=== PATIENT | female | born 1980 ===

== ENCOUNTER 2021-05-29 14:58 | Emergency (ER) | payer OTHER ==
[2021-05-29] MEDS ORDERED: ACETAMINOPHEN 325 MG TAB PO ONE (17:45)
[2021-05-29 17:46] VITALS: BP 124/81
--- NOTE | 2021-05-29 18:03 | Emergency Department Report ---
- General Chief Complaint: Upper Respiratory Infection Stated Complaint: COVID SYMPTOMS Time Seen by Provider: 05/29/21 17:38 Source: patient Mode of arrival: Ambulatory Limitations: No Limitations - History of Present Illness Initial Comments: Patient is a 41-year-old female presents emergency room stating that her chief complaint is "Covid 19 symptoms" that began 3 days ago. She has associated dry cough, fatigue, fever, chills, generalized body aches, diarrhea, headache, chest congestion. She states that she also feels shortness of breath and chest discomfort after frequent coughing. She denies any vomiting, urinary symptoms, abdominal pain, leg swelling. She has not been vaccinated for COVID-19. She has not been tested for COVID-19. She denies any sick contacts or recent travel. No past medical history. No allergies to medications. - Related Data Allergies Allergy/AdvReac Type Severity Reaction Status Date / Time No Known Allergies Allergy Unverified 05/29/21 17:12 ED Review of Systems ROS: Stated complaint: COVID SYMPTOMS Other details as noted in HPI Comment: All other systems reviewed and negative ED Past Medical Hx - Past Medical History Previous Medical History?: No - Surgical History Past Surgical History?: No ED Physical Exam - General Limitations: No Limitations General appearance: alert, in no apparent distress - Head Head exam: Present: atraumatic, normocephalic - Eye Eye exam: Present: normal appearance - ENT ENT exam: Present: mucous membranes moist - Respiratory Respiratory exam: Present: normal lung sounds bilaterally. Absent: respiratory distress, wheezes, rales, rhonchi, stridor, chest wall tenderness, accessory muscle use, decreased breath sounds, prolonged expiratory - Cardiovascular Cardiovascular Exam: Present: regular rate, normal rhythm, normal heart sounds. Absent: systolic murmur, diastolic murmur, rubs, gallop - Neurological Exam Neurological exam: Present: alert, oriented X3 - Psychiatric Psychiatric exam: Present: normal affect, normal mood - Skin Skin exam: Present: warm, dry, intact ED Course Vital Signs 05/29/21 05/29/21 17:44 19:04 Temperature 100.4 F H 99.5 F Pulse Rate 104 H 96 H Respiratory 14 Rate Blood Pressure 124/81 [Left] O2 Sat by Pulse 97 98 Oximetry ED Medical Decision Making - Lab Data Vital Signs 05/29/21 05/29/21 17:44 19:04 Temperature 100.4 F H 99.5 F Pulse Rate 104 H 96 H Respiratory 14 Rate Blood Pressure 124/81 [Left] O2 Sat by Pulse 97 98 Oximetry - Radiology Data Radiology results: report reviewed Ordering Physician: NUZHAT GARCIA Date of Service: 05/29/21 Procedure(s): XR chest routine 2V Accession Number(s): [id number] cc: NUZHAT GARCIA Fluoro Time In Minutes: CHEST 2 VIEWS INDICATION: cough, fever, CP, SOB. COMPARISON: None. FINDINGS: Support devices: None. Heart: Within normal limits. Lungs/Pleura: No acute air space or interstitial disease. No significant pleural effusion. IMPRESSION: No acute findings. Signer Name: Akil Vega MD Signed: 05/29/2021 6:21 PM Workstation Name: [id number] Transcribed By: ES Dictated By: Akil Vega MD Electronically Authenticated By: Akil Vega MD Signed Date/Time: 05/29/211820 DD/ 19 TD/TT: Print - Medical Decision Making Patient is a 41-year-old female presents emergency room stating that her chief complaint is "Covid 19 symptoms" that began 3 days ago. She has associated dry cough, fatigue, fever, chills, generalized body aches, diarrhea, headache, chest congestion. She states that she also feels shortness of breath and chest discomfort after frequent coughing. She denies any vomiting, urinary symptoms, abdominal pain, leg swelling. She has not been vaccinated for COVID-19. She has not been tested for COVID-19. She denies any sick contacts or recent travel. No past medical history. No allergies to medications. Low-grade fever and elevated heart rate which improved upon medication administration. No abnormality on exam as documented in chart. Patient is able to maintain oxygen saturations of 95% or greater on room air. Chest x-ray: IMPRESSION: No acute findings. Patient does not meet hospital criteria for admission or for hospital COVID-19 testing. Symptoms appear could be consistent with viral URI. Patient is presenting with the symptoms during COVID-19 pandemic, discussed the possibility of COVID-19 with patient, discussed outpatient testing, discussed self quarantine, discussed return precautions. Advised patient Please increase your fluid intake over the next several days. May take Tylenol as needed for fever or body aches. May take vcvl-spn-amfxuru cold symptom relief medication such as Mucinex or TheraFlu. Follow-up with a primary care doctor for reexamination. Return to emergency room immediately for any new or worsening symptoms including but not limited to difficulty breathing, shortness of breath, severe chest pain, unable to tolerate by mouth intake, etc. Recommend for you to get COVID-19 testing, and quarantine as necessary. Critical care attestation.: If time is entered above; I have spent that time in minutes in the direct care of this critically ill patient, excluding procedure time. ED Disposition Clinical Impression: Upper respiratory infection Qualifiers: URI type: unspecified URI Qualified Code(s): J06.9 - Acute upper respiratory infection, unspecified Disposition: TO HOME OR SELFCARE Is pt being admited?: No Does the pt Need Aspirin: No Condition: Stable Instructions: COVID-19, Viral Respiratory Infection, Prevent the Spread of COVID-19 if You Are Sick - [facility] Additional Instructions: Please increase your fluid intake over the next several days. May take Tylenol as needed for fever or body aches. May take [id number]-agt-[id number] cold symptom relief medication such as Mucinex or TheraFlu. Follow-up with a primary care doctor for reexamination. Return to emergency room immediately for any new or worsening symptoms including but not limited to difficulty breathing, shortness of breath, severe chest pain, unable to tolerate by mouth intake, etc. Recommend for you to get COVID-19 testing, and quarantine as necessary. Referrals: JACQUELINE SHAVER MD [Staff Physician] - 2-3 Days [facility] [Provider Group] - 2-3 Days Time of Disposition: 19:01 Print Language: [place]
--- NOTE | 2021-05-29 18:26 | XRay Report ---
CHEST 2 VIEWS INDICATION: cough, fever, CP, SOB. COMPARISON: None. FINDINGS: Support devices: None. Heart: Within normal limits. Lungs/Pleura: No acute air space or interstitial disease. No significant pleural effusion. IMPRESSION: No acute findings. Signer Name: Akil Vega MD Signed: 05/29/2021 6:21 PM Workstation Name: [id number]
== END 2021-05-29 19:04 | disposition home or self-care (01) ==
LOC: ED 14:58
DX: J06.9 Acute upper respiratory infection, unspecified (principal)
CPT/HCPCS: 71046; 99283